=== PATIENT | female | born 1950 | race Caucasian/White ===

== ENCOUNTER 2018-05-05 09:45 | Emergency (ER) | payer MEDICARE, OTHER ==
[~2018-05-05] VITALS: Ht 157.5 cm; Wt 72.1 kg
[~2018-05-05 09:45] MED LIST: ACIDOPHILUS1 EACH PO; ALTOPREV40 MG PO; AMOXICILLIN; CALCIUM 600 +1 EAC5 PO; CALCIUM OYSTER500 MG PO; CEFTIN 250 MG250 MG; COUMADIN 2 MG TA2 M1 PO; COUMADIN 3 MG TA3 M1 PO; COUMADIN 5 MG TA5 M1 PO; FISHOIL; K-DUR 20 MEQ T20 MEQ PO; LEVOTHROID 00.075 M1 PO; LEVOTHYROXINE; LISINOPRIL-HCT1 EACH PO; LOVASTAT40 PO; NORCO 5-325 TA1 EACH PO; PHENERGAN 25 MG25 M1 PO; POTASSIUM20 PO; PROAIR HFA8.5 GM; PROAIR HFA8.5 GM IH; SYNTHROID100 MCG PO; TRAMADOL 50 MG50 MG PO; TRIAMTERENE-HC1 EAC1 PO; TUMS PO; VICODIN; VITAMIN D1000 UNI1 PO; VITAMIN D3400 UNIT PO; VITAMIN D400 UNI1; ZPAK PO
[2018-05-05] MEDS ORDERED: MAGOX 400400 MG PO (09:55)
[2018-05-05 10:12] LABS: ABSOLUTE BASOPHILS 0.1 thou/uL (0.0-0.2); ABSOLUTE EOSINOPHILS 0.2 thou/uL (0.0-0.7); ABSOLUTE LYMPHOCYTES 1.6 thou/uL (0.8-5.3); ABSOLUTE MONOCYTES 0.6 thou/uL (0.0-1.2); ABSOLUTE NEUTROPHILS 3.9 thou/uL (1.6-8.1); BASOPHILS 0.9 %; EOSINOPHILS 3.2 %; HEMATOCRIT 36.9 % (37.0-47.0); HEMOGLOBIN 12.3 gm/dL (12.0-15.0); LYMPHOCYTES 25.1 %; MCH 28.7 pg (26.0-34.0); MCHC 33.2 g/dL (28.0-37.0); MCV 86.6 fL (80.0-100.0); MONOCYTES 8.7 %; MPV 8.2 fl. (7.2-11.1); NUCLEATED RBCS 0 /100WBC; PLATELET COUNT* 255 thou/uL (150-400); POLYS 62.1 %; RBC 4.27 mil/uL (4.20-5.00); RDW-CV 14.5 % (10.5-14.5); WBC 6.4 thou/uL (4.0-11.0)
[2018-05-05 10:34] LABS: ANION GAP 6 mmol/L (7-16); BUN 15 mg/dL (7-18); CALCIUM 8.7 mg/dL (8.5-10.1); CHLORIDE 103 mmol/L (98-107); CO2 29 mmol/L (21-32); CREATININE 0.9 mg/dL (0.6-1.3); GLUCOSE 94 mg/dL (70-99); POTASSIUM 3.8 mmol/L (3.5-5.1); SODIUM 138 mmol/L (136-145)
[2018-05-05 10:45] LABS: INR 2.6; PROTIME 25.4 Seconds (9.20-11.50)
[2018-05-05 10:46] LABS: APTT 44.9 Seconds (25.0-31.3)
[2018-05-05 10:52] LABS: ALBUMIN 3.7 g/dL (3.4-5.0); ALKALINE PHOSPHATASE 88 U/L (46-116); CK-MB MASS 0.8 ng/mL (<0.5-3.6); LIPASE 104 U/L (73-393); MAGNESIUM 2.2 mg/dL (1.8-2.4); NT-PRO BRAIN NAT PEPTIDE 54 pg/mL (<300); SGOT 31 U/L (15-37); SGPT 49 U/L (30-65); TOTAL BILIRUBIN 0.3 mg/dL (<0.1-1.0); TOTAL PROTEIN 7.7 g/dL (6.4-8.2); TROPONIN-I LEVEL <0.06 ng/mL (<0.06)
[2018-05-05 12:48] VITALS: BP 136/54
--- NOTE | 2018-05-06 09:44 | EKG ---
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
--- NOTE | 2018-05-06 09:46 | EKG ---
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 05/06/18 0946 1204 1204 Scott Potter MD, FACC /EPI
== END 2018-05-05 12:49 | disposition home or self-care (01) ==
LOC: M.ERS 09:45
PROVIDERS: Family Medicine
DX: R07.89 Other chest pain (principal); I10 Essential (primary) hypertension; Z88.1 Allergy status to other antibiotic agents; Z88.5 Allergy status to narcotic agent; Z90.710 Acquired absence of both cervix and uterus

== ENCOUNTER 2019-03-31 12:33 | Emergency (ER) | payer MEDICARE, OTHER ==
[~2019-03-31] VITALS: Ht 157.5 cm; Wt 70.3 kg
[~2019-03-31 12:33] MED LIST changes: +MAGOX 400400 MG PO
[2019-03-31 12:43] VITALS: BP 156/89
[2019-03-31] MEDS ORDERED: HYDROXYZINE HCL25 M1 PO (12:56)
== END 2019-03-31 13:12 | disposition home or self-care (01) ==
LOC: M.ERS 12:33
DX: F41.9 Anxiety disorder, unspecified (principal); H93.11 Tinnitus, right ear; I10 Essential (primary) hypertension; Z85.118 Personal history of other malignant neoplasm of bronchus and lung; Z90.710 Acquired absence of both cervix and uterus; Z88.2 Allergy status to sulfonamides; Z88.5 Allergy status to narcotic agent

== ENCOUNTER 2020-05-23 22:59 | Emergency (ER) | payer MEDICARE, OTHER ==
[~2020-05-23] VITALS: Ht 157.5 cm; Wt 72.1 kg
[~2020-05-23 22:59] MED LIST changes: +HYDROXYZINE HCL25 M1 PO
[2020-05-23 23:33] LABS: ABSOLUTE BASOPHILS 0.1 thou/uL (0.0-0.2); ABSOLUTE EOSINOPHILS 0.2 thou/uL (0.0-0.7); ABSOLUTE LYMPHOCYTES 1.7 thou/uL (0.8-5.3); ABSOLUTE MONOCYTES 0.6 thou/uL (0.0-1.2); BASOPHILS 0.8 %; EOSINOPHILS 2.1 %; HEMOGLOBIN 12.2 gm/dL (12.0-15.0); LYMPHOCYTES 22.6 %; MCH 30.3 pg (26.0-34.0); MCV 86.7 fL (80.0-100.0); MONOCYTES 7.9 %; MPV 8.5 fl. (7.2-11.1); NUCLEATED RBCS 0 /100WBC; PLATELET COUNT* 244 thou/uL (150-400); POLYS 66.6 %; RBC 4.04 mil/uL (4.20-5.00); RDW-CV 14.1 % (10.5-14.5); WBC 7.4 thou/uL (4.0-11.0)
[2020-05-23 23:40] LABS: INR 2.6; PROTIME 25.8 Seconds (9.20-11.50)
[2020-05-23 23:51] LABS: CALCIUM 8.7 mg/dL (8.5-10.1); CREATININE 1.1 mg/dL (0.6-1.3); POTASSIUM 3.5 mmol/L (3.5-5.1)
[2020-05-24] MEDS ORDERED: HYDROCODON-ACE1 EAC8 PO (00:56)
[2020-05-24 01:08] VITALS: BP 138/58
== END 2020-05-24 01:09 | disposition home or self-care (01) ==
LOC: M.ERS 22:59
PROVIDERS: Emergency Medicine
DX: M71.21 Synovial cyst of popliteal space [Baker], right knee (principal); I10 Essential (primary) hypertension; Z85.118 Personal history of other malignant neoplasm of bronchus and lung; Z86.718 Personal history of other venous thrombosis and embolism; Z90.710 Acquired absence of both cervix and uterus; Z85.41 Personal history of malignant neoplasm of cervix uteri; Z91.048 Other nonmedicinal substance allergy status; Z88.2 Allergy status to sulfonamides; Z88.6 Allergy status to analgesic agent

== ENCOUNTER 2020-05-29 21:31 | Emergency (ER) | payer MEDICARE, OTHER ==
[~2020-05-29] VITALS: Ht 157.5 cm; Wt 72.1 kg
[~2020-05-29 21:31] MED LIST changes: +HYDROCODON-ACE1 EAC8 PO
[2020-05-29] MEDS ORDERED: PREDNISONE 20 M20 M1 PO (22:28)
[2020-05-29 22:40] VITALS: BP 149/46
== END 2020-05-29 22:40 | disposition home or self-care (01) ==
LOC: M.ERS 21:31
DX: M25.461 Effusion, right knee (principal); I10 Essential (primary) hypertension; Z88.5 Allergy status to narcotic agent; Z88.2 Allergy status to sulfonamides; Z88.8 Allergy status to other drugs, medicaments and biological substances; Z85.118 Personal history of other malignant neoplasm of bronchus and lung; Z90.710 Acquired absence of both cervix and uterus; Z85.41 Personal history of malignant neoplasm of cervix uteri

== ENCOUNTER 2020-10-10 17:27 | Emergency (ER) | payer MEDICARE, OTHER ==
[~2020-10-10] VITALS: Ht 157.5 cm; Wt 70.3 kg
[~2020-10-10 17:27] MED LIST changes: +PREDNISONE 20 M20 M1 PO
[2020-10-10 18:03] LABS: INR 1.9; PROTIME 19.2 Seconds (9.20-11.50)
[2020-10-10 18:27] LABS: URINE BILIRUBIN NEGATIVE (Negative); URINE BLOOD 3+ (Negative); URINE CLARITY CLOUDY; URINE COLOR BROWN; URINE GLUCOSE-RANDOM NEGATIVE (Negative); URINE KETONES NEGATIVE (Negative); URINE LEUKOCYTES 2+ (Negative); URINE NITRITE POSITIVE (Negative); URINE PROTEIN 1+ (Negative); URINE UROBILINOGEN 0.2 E.U./dl (0.2-1.0)
[2020-10-10 18:30] LABS: SQUAMOUS >10 Many /LPF (0-3)
[2020-10-10 18:31] LABS: BACTERIA >30 Many /HPF (None Seen); URINE RBC >20 Many /HPF (0-2); URINE WBC >25 Many /HPF (0-5); WBC CLUMPS Many (None Seen)
[2020-10-10 18:32] LABS: CASTS None Seen /LPF (None Seen); CRYSTALS None Seen /LPF (None Seen); MUCUS None Seen strn/LPF (None Seen); TRANSITIONAL EPITHEL CELL 0-3 Few /LPF (None Seen)
[2020-10-10] MEDS ORDERED: KEFLEX500 M1 PO (18:49)
[2020-10-10 19:01] VITALS: BP 100/62
== END 2020-10-10 19:01 | disposition home or self-care (01) ==
LOC: M.ERS 17:27
PROVIDERS: Nurse Practitioner Family
DX: N39.0 Urinary tract infection, site not specified (principal); R79.1 Abnormal coagulation profile; I10 Essential (primary) hypertension; Z88.5 Allergy status to narcotic agent; Z88.2 Allergy status to sulfonamides; Z88.8 Allergy status to other drugs, medicaments and biological substances; Z85.118 Personal history of other malignant neoplasm of bronchus and lung; Z86.718 Personal history of other venous thrombosis and embolism; Z90.710 Acquired absence of both cervix and uterus; Z85.41 Personal history of malignant neoplasm of cervix uteri

== ENCOUNTER 2021-05-22 21:58 | Emergency (ER) | payer MEDICARE, OTHER ==
[~2021-05-22] VITALS: Ht 157.5 cm; Wt 70.3 kg
[~2021-05-22 21:58] MED LIST changes: +KEFLEX500 M1 PO
[2021-05-22 23:27] LABS: ABSOLUTE LYMPHOCYTES 1.7 thou/uL (0.8-5.3); ABSOLUTE NEUTROPHILS 9.6 thou/uL (1.6-8.1); BASOPHILS 0.3 %; HEMATOCRIT 36.5 % (37.0-47.0); HEMOGLOBIN 12.6 gm/dL (12.0-15.0); LYMPHOCYTES 13.8 %; MCH 28.9 pg (26.0-34.0); MCHC 34.4 g/dL (28.0-37.0); MONOCYTES 8.1 %; MPV 8.1 fl. (7.2-11.1); NUCLEATED RBCS 0 /100WBC; PLATELET COUNT* 310 thou/uL (150-400); POLYS 77.8 %; RBC 4.35 mil/uL (4.20-5.00); RDW-CV 14.5 % (10.5-14.5); WBC 12.4 thou/uL (4.0-11.0)
[2021-05-22 23:39] LABS: CALCIUM 8.3 mg/dL (8.5-10.1); INR 2.5; POTASSIUM 4.2 mmol/L (3.5-5.1); PROTIME 25.1 Seconds (9.20-11.50)
[2021-05-22 23:54] LABS: ALBUMIN 3.2 g/dL (3.4-5.0); MAGNESIUM 2.3 mg/dL (1.8-2.4); TOTAL BILIRUBIN 0.2 mg/dL (<0.1-1.0); TOTAL PROTEIN 6.8 g/dL (6.4-8.2)
[2021-05-23 01:46] LABS: URINE BILIRUBIN NEGATIVE (Negative); URINE BLOOD NEGATIVE (Negative); URINE CLARITY CLEAR; URINE COLOR YELLOW; URINE GLUCOSE-RANDOM NEGATIVE (Negative); URINE KETONES NEGATIVE (Negative); URINE LEUKOCYTES-REFLEX TRACE (Negative); URINE NITRITE-REFLEX NEGATIVE (Negative); URINE PROTEIN NEGATIVE (Negative); URINE SPECIFIC GRAVITY 1.015 (1.005-1.030); URINE UROBILINOGEN 0.2 E.U./dl (0.2-1.0)
[2021-05-23 03:09] VITALS: BP 145/59
[2021-05-23 03:43] LABS: CASTS None Seen /LPF (None Seen); SQUAMOUS 4-10 Moderate /LPF (0-3); URINE WBC-REFLEX 0-5 Rare /HPF (0-5)
[2021-05-23 03:44] LABS: BACTERIA-REFLEX >30 Many /HPF (None Seen); CRYSTALS None Seen /LPF (None Seen); URINE RBC None Seen /HPF (0-2)
--- NOTE | 2021-05-23 10:05 | EKG ---
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
--- NOTE | 2021-05-23 17:03 | EKG ---
[place] [address] ELECTROCARDIOGRAM REPORT Name: CONCHITA BOYD Room: 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: [facility] : 1950 Requested By: Chelsy Burgos Order Number: [id number] Concetta MD: Sajan Casarez Measurements Intervals [place] Rate: 68 P: 68 [place]: 158 QRS: 35 QRSD: 84 T: 59 QT: 387 QTc: 412 Interpretive Statements Sinus rhythm Compared to ECG 05/05/2018 12:04:48 No significant changes Electronically Signed On 05-23-2021 17:03:15 CDT by Sajan Caasrez [email or web address] <ELECTRONICALLY SIGNED> By: Sajan Casarez MD, [facility] 05/23/21 1703 15 15 Sajan Casarez MD, [facility] /EPI
== END 2021-05-23 03:09 | disposition home or self-care (01) ==
LOC: M.ERS 21:58
PROVIDERS: Emergency Medicine
DX: R07.89 Other chest pain (principal); R53.1 Weakness; I10 Essential (primary) hypertension; Z79.899 Other long term (current) drug therapy; Z85.118 Personal history of other malignant neoplasm of bronchus and lung

== ENCOUNTER → 2021-06-16 | Outpatient (CLI) | payer MEDICARE, OTHER ==
--- NOTE | 2021-06-16 15:53 | CARDNUC ---
[place] [address] CARDIAC NUCLEAR IMAGING REPORT Name: OLIVERCONCHITA C Room: [facility]#: [id number] Admission: 06/16/21 Attend Phys: Sajan Casarez, Discharge: Date of : 54 Date of Service: 06/16/21 1553 Report #: [id number] THIS REPORT FOR: cc: Vijaya Juan Michelle RNP Liston, Michael J. MD [facility] ~ APPROVED REPORT Study performed: 06/16/2021 13:58:58 Exam: Nuclear Stress Test Indication: Chest pain, Dyspnea Patient Location: Out-Patient Stress Nurse: Abimbola Pate RN Ht: 5 ft 2 in Wt: 152 lbs BSA: 1.70 m2 BMI: 27.79 Medical History Medical History: COPD, HTN, Hyperlipidemia, lung cancer with lobectomy Medications: lisinopril, lovastatin, k-dur, warfarin Allergies: codeine, sulfa Cardiac Risk Factors: Age, HTN, Hyperlipidemia Exercise History: Sedentary Stress Test Details Stress Test: Exercise stress testing was performed using a Daniel protocol. HR Resting HR: 80 bpm Max Heart Rate (APMHR): 151 bpm Max HR Achieved: 154 bpm Target HR (85% APMHR): 128 bpm % of APMHR: 101 Recovery HR: 103 bpm BP Resting BP: 100/59 mmHg Max BP: 188/56 mmHg ECG Resting ECG: Sinus Rhythm Stress ECG: Sinus Tachycardia ST Change: None Arrhythmia: [place] [address] CARDIAC NUCLEAR IMAGING REPORT Name: CONCHITA BOYD Room: [facility]#: [id number] Admission: 06/16/21 Attend Phys: Sajan Casarez, Discharge: Date of : 54 Date of Service: 06/16/21 1553 Report #: [id number] Recovery ECG: Sinus Rhythm Recovery ST Change: None Recovery Arrhythmia: None Clinical Reason for Termination: Dyspnea Exercise duration: 5 min 04 sec Exercise capacity: 6.14 METs Overall Exercise Capacity for Age: Normal Functional Aerobic Impairment 90% The patient tolerated standard Daniel protocol exercise without significant cardiac symptoms. Nurse Comments pt had caffeine and so opted to try treadmill Stress ECG Conclusion Baseline twelve-lead EKG shows sinus rhythm without significant ST segment or T wave abnormality. EKGs obtained during and post exercise show sinus rhythm and sinus tachycardia with no significant ST segment or T wave changes when compared to baseline. There were no stress-induced arrhythmias. NM EXAM: Myocardial Perfusion REST/STRESS Resting Data Rest SPECT myocardial perfusion imaging was performed in supine position 30 minutes following the intravenous injection of 10.7 mCi of Tc-99m Sestamibi. Time of rest injection: 12:55 The images were gated to evaluate regional wall motion and calculate left ventricular ejection fraction. Administration Route: IV Administration Site: Right AC Exercise Stress At peak stress, the patient was injected intravenously with 34.0mCi of Tc-99m Sestamibi. Time of stress injection: 14:33 Administration Route: IV Administration Site: Right AC Heart Rate at time of stress injection: 150 bpm. Patient continued to exercise for 1 minute(s). The images were gated to evaluate regional wall motion and calculate left ventricular ejection fraction. [place] [address] CARDIAC NUCLEAR IMAGING REPORT Name: CONCHITA BOYD Room: [facility]#: [id number] Admission: 06/16/21 Attend Phys: Sajan Casarez, Discharge: Date of : 54 Date of Service: 06/16/21 1553 Report #: [id number] Study Quality Study: Good Artifact: No artifact Study Data At rest, the left ventricular ejection fraction was 77%.. Post stress, the left ventricular ejection was 78%.. TID = 0.95. Perfusion Perfusion images obtained at rest and post exercise show uniform uptake of the radioisotope throughout the myocardium. There were no defects to suggest infarct or ischemia. Wall Motion Normal left ventricular wall motion. Nuclear Conclusion ECG Findings: negative for ischemia Clinical Findings: negative for ischemia Nuclear Findings: negative for ischemia Exercise Capacity: Fair Left Ventricular Function: normal Risk Study: low Perfusion images show no defect to suggest infarct or ischemia. Left ventricular systolic function appears normal on gated studies. This is a low risk study. <Conclusion> Baseline twelve-lead EKG shows sinus rhythm without significant ST segment or T wave abnormality. EKGs obtained during and post exercise show sinus rhythm and sinus tachycardia with no significant ST segment or T wave changes when compared to baseline. There were no stress-induced arrhythmias. <ELECTRONICALLY SIGNED> By: Sajan Casarez MD, [facility] 06/16/21 1553 1553 1553 Sajan Casarez MD, FACC /INF
== END ==
LOC: M.NUC 12:32
PROVIDERS: ATTEND Internal Medicine Cardiovascular Disease
DX: R00.0 Tachycardia, unspecified (principal); R07.9 Chest pain, unspecified; J44.9 Chronic obstructive pulmonary disease, unspecified; I10 Essential (primary) hypertension; E78.5 Hyperlipidemia, unspecified